=== PATIENT | female | born 1985 | race Caucasian/White ===

== ENCOUNTER → 2020-04-13 | Outpatient (CLI) | payer OTHER, SELFPAY | LOC: M LABSMTC 11:13 | PROVIDERS: ATTEND Orthopaedic Surgery | DX: Z20.828 Contact with and (suspected) exposure to other viral communicable diseases (principal) | CPT/HCPCS: C9803; U0003 ==

== ENCOUNTER → 2022-09-10 | Outpatient (CLI) | payer OTHER ==
[~2022-09-10] MED LIST: PERC5TAB12 PO
== END ==
LOC: M LABSMTC 11:31
PROVIDERS: ATTEND Anesthesiology
DX: Z01.818 Encounter for other preprocedural examination (principal)

== ENCOUNTER 2022-09-11 06:20 | Day surgery (SDC) | payer OTHER ==
[~2022-09-11] VITALS: Ht 154.9 cm; Wt 59.6 kg
[2022-09-11] MEDS ORDERED: LR 1,000 ML IV SCH (06:45)
[2022-09-11] MEDS ORDERED: LIDOCAINE 2% 100MG/5ML SDV (FOR ANES.) As Ordered ONE (07:01)
[2022-09-11] MEDS ORDERED: KETOROLAC 60MG 2ML VIAL As Ordered ONE (07:01)
[2022-09-11] MEDS ORDERED: propofoL 200 MG/20 ML VIAL As Ordered ONE (07:01)
[2022-09-11] MEDS ORDERED: ONDANSETRON 4MG 2ML VIAL As Ordered ONE (07:01)
[2022-09-11] MEDS ORDERED: MIDAZOLAM INJ 2MG/2ML VIAL As Ordered ONE (07:02)
[2022-09-11] MEDS ORDERED: fentaNYL 100 MCG/2 ML INJECTION As Ordered ONE (07:04)
[2022-09-11] MEDS ORDERED: BACITRACIN OINTMENT 30GM TUBE As Ordered ONE (07:21)
[2022-09-11] MEDS ORDERED: BUPIVACAINE HCL 0.25% 30ML VIAL As Ordered ONE (07:21)
[2022-09-11] MEDS ORDERED: ceFAZolin 2 GM/D5W 50 ML IV BAG As Ordered ONE (07:30)
[2022-09-11] MEDS ORDERED: PHENYLephrine 500MCG 5ML (100MCG/ML) SYRINGE As Ordered ONE (07:51)
[2022-09-11] MEDS ORDERED: ONDANSETRON 4MG 2ML VIAL IV PRN (08:25)
[2022-09-11] MEDS ORDERED: PERC5TAB12 PO (08:33)
[2022-09-11] MEDS: fentaNYL 100 MCG/2 ML INJECTION IV PRN ×3 (08:37→08:50)
[2022-09-11] MEDS: oxyCODONE 5MG TAB PO PRN ×2 (08:44→09:17)
[2022-09-11] MEDS ORDERED: ACETAMINOPHEN 1000MG 100ML IV BAG IV ONE (08:55)
[2022-09-11 10:54] VITALS: BP 120/65
== END 2022-09-11 10:00 | disposition home or self-care (01) ==
LOC: M SDC 06:20
PROVIDERS: ATTEND Orthopaedic Surgery Hand Surgery
DX: M67.432 Ganglion, left wrist (principal); G56.02 Carpal tunnel syndrome, left upper limb; R51.9 Headache, unspecified
CPT/HCPCS: 25111; 29848; 81025; 88305; J1100; J2370; J2405